=== PATIENT | female | born 1985 | race African-American/Black ===

== ENCOUNTER 2017-02-17 13:10 | Emergency (ER) | payer MEDICAID, OTHER ==
[~2017-02-17] VITALS: Ht 162.6 cm; Wt 94.0 kg
[~2017-02-17 13:10] MED LIST: VALA500T55
[2017-02-17] MEDS ORDERED: ACETAMINOPHEN 325MG TABLET PO ONE (16:15)
[2017-02-17 16:17] LABS: CHLORIDE 106 mEq/L (98-107)
[2017-02-17 16:20] LABS: BASOPHILS % 0.6 % (0.0-2.0); EOSINOPHILS % 10.3 % (0.0-5.0); HEMATOCRIT. 32.6 % (36.0-48.0); HEMOGLOBIN. 10.9 g/dL (12.0-16.0); LYMPHOCYTES % 33.8 % (20.0-50.0); MEAN CORPUSCULAR HEMOGLOBIN 28.1 pg (28.0-32.0); MEAN CORPUSCULAR VOLUME 84.2 fL (81.0-99.0); MEAN PLATELET VOLUME 10.9 fl (7.4-10.4); MONOCYTES % 8.5 % (2.0-8.0); NEUTROPHILS % 46.8 % (40.0-76.0); PLATELET 114 x1000/uL (130-400); RED BLOOD CELL COUNT 3.88 mill/uL (4.2-5.4); RED CELL DISTRIBUTION WIDTH 15.1 % (11.6-14.6)
[2017-02-17 16:29] LABS: CLARITY URINE CLOUDY (CLEAR); COLOR URINE YELLOW (YELLOW); GLUCOSE URINE NEGATIVE (NEGATIVE); KETONES URINE TRACE (NEGATIVE); LEUKOCYTE ESTERASE URINE TRACE (NEGATIVE); NITRITE URINE NEGATIVE (NEGATIVE); OCCULT BLOOD URINE 3+ (NEGATIVE); PH URINE 5.5 (4.5-8.0); PROTEIN URINE TRACE (NEGATIVE); SPECIFIC GRAVITY URINE 1.029 (1.005-1.030); UROBILINOGEN URINE 0.2 E.U./dL (0.2-1.0)
[2017-02-17 16:33] LABS: CARBON DIOXIDE 25 mEq/L (21-32)
[2017-02-17 16:40] LABS: B-HCG QUANTITATIVE 71452 mIU/mL (<3)
[2017-02-17 17:01] VITALS: BP 114/44
== END 2017-02-17 17:50 | disposition home or self-care (01) ==
LOC: ER 13:54
DX: O20.0 Threatened abortion (principal); O23.41 Unspecified infection of urinary tract in pregnancy, first trimester; Z3A.01 Less than 8 weeks gestation of pregnancy; Z98.890 Other specified postprocedural states
CPT/HCPCS: 36415; 76801; 76817; 80053; 81001; 84702; 85025; 86850; 86900; 86901; 99285; Z7610

== ENCOUNTER 2017-10-18 02:44 | Emergency (ER) | payer MEDICAID, OTHER ==
[~2017-10-18] VITALS: Ht 162.6 cm; Wt 100.0 kg
[2017-10-18 06:55] VITALS: BP 115/86
== END 2017-10-18 06:55 | disposition home or self-care (01) ==
LOC: ER 03:52
DX: O91.02 Infection of nipple associated with the puerperium (principal); Z88.3 Allergy status to other anti-infective agents; Z88.6 Allergy status to analgesic agent
CPT/HCPCS: 99283

== ENCOUNTER 2022-08-22 10:53 | Emergency (ER) | payer MEDICAID ==
[~2022-08-22] VITALS: Ht 162.6 cm; Wt 91.0 kg
[2022-08-22] MEDS ORDERED: KETOROLAC 30MG/ML VIAL IV STA (13:24)
[2022-08-22] MEDS ORDERED: SODIUM CHLORIDE 0.9% 1,000 ML IV ONE (13:30)
[2022-08-22] MEDS ORDERED: DEXAMETHASONE 10 MG/ML VIAL IV ONE (13:30)
[2022-08-22 14:10] LABS: CHLORIDE 109 mEq/L (98-107)
[2022-08-22 14:16] LABS: BASOPHILS % 0.6 % (0.0-2.0); EOSINOPHILS % 5.6 % (0.0-5.0); HEMATOCRIT. 36.3 % (36.0-48.0); HEMOGLOBIN. 11.7 g/dL (12.0-16.0); LYMPHOCYTES % 35.2 % (20.0-50.0); MEAN CORPUSCULAR HEMOGLOBIN 26.8 pg (28.0-32.0); MEAN CORPUSCULAR VOLUME 83.3 fL (81.0-99.0); MEAN PLATELET VOLUME 10.8 fl (7.4-10.4); NEUTROPHILS % 49.6 % (40.0-76.0); PLATELET 207 x1000/uL (130-400); RED BLOOD CELL COUNT 4.35 mill/uL (4.2-5.4); RED CELL DISTRIBUTION WIDTH 15.9 % (11.6-14.6)
[2022-08-22 14:30] LABS: HCG SCREEN NEGATIVE
[2022-08-22] MEDS ORDERED: ONDANSETRON HCL 4MG/2ML INJ IV ONE (15:00)
[2022-08-22] MEDS ORDERED: LIDOCAINE 5% PATCH TOP SCH (16:15)
[2022-08-22] MEDS ORDERED: ACETAMINOPHEN 325MG TABLET PO ONE (16:15)
[2022-08-22 16:29] LABS: CLARITY URINE CLEAR (CLEAR); COLOR URINE YELLOW (YELLOW); KETONES URINE NEGATIVE (NEGATIVE); LEUKOCYTE ESTERASE URINE NEGATIVE (NEGATIVE); NITRITE URINE NEGATIVE (NEGATIVE); OCCULT BLOOD URINE NEGATIVE (NEGATIVE); PH URINE 7.5 (4.5-8.0); PROTEIN URINE NEGATIVE (NEGATIVE); SPECIFIC GRAVITY URINE 1.009 (1.005-1.030); UROBILINOGEN URINE 0.2 E.U./dL (0.2-1.0)
[2022-08-22 17:00] VITALS: BP 128/80
[2022-08-22] MEDS ORDERED: CYCL10TA21 MT (17:35)
[2022-08-22] MEDS ORDERED: NAPR-681 MT (17:35)
== END 2022-08-22 17:45 | disposition home or self-care (01) ==
LOC: ER 10:53
DX: M54.16 Radiculopathy, lumbar region (principal); Z20.822 Contact with and (suspected) exposure to COVID-19; Z88.1 Allergy status to other antibiotic agents; Z88.5 Allergy status to narcotic agent; Z98.890 Other specified postprocedural states
CPT/HCPCS: 36415; 71045; 72146; 72148; 80053; 81003; 84484; 84703; 85025; 87426; 96361; 96374; 96375; 99285; C9803; J1100; J1885; J2405; J7030

== ENCOUNTER 2024-01-23 07:54 | Emergency (ER) | payer MEDICAID ==
[~2024-01-23] VITALS: Ht 170.2 cm; Wt 86.0 kg
[~2024-01-23 07:54] MED LIST changes: +CYCL10TA21 MT; +NAPR-681 MT
[2024-01-23 07:59] VITALS: O2SAT 99
[2024-01-23] MEDS: CYCLOBENZAPRINE 10MG TABLET PO ONE (09:39)
[2024-01-23] MEDS: KETOROLAC 15MG/ML VIAL IM ONE (09:39)
[2024-01-23] MEDS: PREGABALIN 50 MG CAPSULE PO ONE (11:02)
[2024-01-23] MEDS: PREGABALIN 75MG CAPSULE PO ONE (11:04)
[2024-01-23] MEDS ORDERED: KETO10TA2 MT (11:56)
[2024-01-23] MEDS: ONDANSETRON 4MG ODT PO ONE (12:02)
[2024-01-23 12:14] VITALS: BP 133/98; PULSE 68; RESP 18; TEMP 37.05852; O2SAT 100
== END 2024-01-23 12:22 | disposition home or self-care (01) ==
LOC: ER 07:54
DX: M79.605 Pain in left leg (principal); M25.552 Pain in left hip; M25.512 Pain in left shoulder; Z88.5 Allergy status to narcotic agent; Z88.1 Allergy status to other antibiotic agents; W18.30XA Fall on same level, unspecified, initial encounter; Y93.89 Activity, other specified; Y92.89 Other specified places as the place of occurrence of the external cause; Y99.8 Other external cause status
CPT/HCPCS: 81025; 72170; 73030; 73070; 73120; 73560; 73590; 73600; 73620; 72131; 96372; 99285; Z7610 ×2; Q0162; J1885